=== PATIENT | female | born 1995 | race American Indian/Alaskan Native ===

== ENCOUNTER 2021-03-10 14:39 | Outpatient (CLI) | payer MEDICAID ==
[2021-03-10 15:38] VITALS: BP 126/72
[2021-03-10] MEDS ORDERED: LACTATED RINGERS 1,000 ML IV ONE (15:48)
[2021-03-10] MEDS ORDERED: ACETAMINOPHEN 500 MG TAB PO ONE (16:02)
[2021-03-10 16:17] LABS: Amphetamine Screen,Urine Negative; Benzodiazepines Screen,Urine Negative; Cannabinoid Screen,Urine Negative; Cocaine Screen,Urine Negative; Methadone Screen,Urine Negative; Opiate Screen,Urine Negative
[2021-03-10 16:53] LABS: Bacteria,Urine 1+ /HPF (Negative); Bilirubin,Urine NEG (Negative); Blood,Urine NEG (Negative); Color,Urine Yellow (Yellow); Hyaline Casts,Urine 1 /LPF; Mucus,Urine 1+ /HPF; Protein,Urine <15 mg/dL mg/dL (Negative); Urobilinogen,Urine < 2.0 mg/dL (<2.0)
== END 2021-03-10 17:35 | disposition home or self-care (01) ==
LOC: APU 14:39 → TRG 14:39
PROVIDERS: ATTEND Obstetrics & Gynecology
DX: O26.892 Other specified pregnancy related conditions, second trimester (principal); R51.9 Headache, unspecified; R25.2 Cramp and spasm; R42 Dizziness and giddiness; O47.02 False labor before 37 completed weeks of gestation, second trimester; O13.2 Gestational [pregnancy-induced] hypertension without significant proteinuria, second trimester; Z3A.26 26 weeks gestation of pregnancy
CPT/HCPCS: 59025; 80307; 81001; 96360; J7120

== ENCOUNTER 2021-03-21 17:30 | Outpatient (CLI) | payer MEDICAID ==
[2021-03-21] MEDS ORDERED: LACTATED RINGERS 500 ML IV ONE (18:54)
[2021-03-21 19:40] VITALS: BP 122/72
[2021-03-21 20:25] LABS: Amorphous Crystals,Urine Few; Bacteria,Urine 1+ /HPF (Negative); Bilirubin,Urine NEG (Negative); Blood,Urine NEG (Negative); Color,Urine Yellow (Yellow); Mucus,Urine 1+ /HPF
--- NOTE | 2021-03-21 21:06 | Ultrasound Report ---
LIMITED OBSTETRICAL ULTRASOUND. HISTORY: labor. FINDINGS: A single viable intrauterine in the breech presentation is dated 28 weeks 2 days by ultrasound. Estimated weight is 1204 g. Amniotic fluid index is at the lower range of normal measuring 8.8 cm. heart tones are 161 bpm. The cervix is closed measuring 3.5 cm. No placental separation is identified. IMPRESSION: Single viable intrauterine dated 28 weeks 2 days. Signer Name: Alfred Gaming MD Signed: 03/21/2021 9:02 PM Workstation Name: [id number]
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
[2021-03-21] MEDS ORDERED: LACTATED RINGERS 1,000 ML ONE (21:29)
[2021-03-21] MEDS ORDERED: LACTATED RINGERS 1000 ML IV SOLN IV SCH (21:45)
[2021-03-21] MEDS ORDERED: ACETAMINOPHEN 500 MG TAB PO ONE (22:13)
[2021-03-21] MEDS ORDERED: ACETAMINOPHEN 500 MG TAB ONE (22:14)
--- NOTE | 2021-03-22 08:53 | Ultrasound Report ---
ULTRASOUND PELVIS LIMITED INDICATION / CLINICAL INFORMATION: pain on left side mid to lower abdomen. Patient is 28 weeks pregna nt. COMPARISON: Ultrasound obstetric performed earlier on the same date. TECHNIQUE: Transabdominal. FINDINGS: Neither ovary can be identified due to excessive bowel gas. No adnexal mass or cyst. No free fluid in the pelvis. Signer Name: Dilcia Galaviz MD Signed: 03/22/2021 8:48 AM Workstation Name: [id number]
--- NOTE | 2021-03-23 10:08 | Ultrasound Report ---
US renal BILAT INDICATION / CLINICAL INFORMATION: pain on left side mid to lower abdomen. COMPARISON: None available. FINDINGS: RIGHT KIDNEY: Size = 13.2 cm. - Echogenicity: Normal. - Cortical thickness: Normal. - Hydronephrosis: None. - Cyst or mass: None. - Stones: None seen.. LEFT KIDNEY: Size = 13.6 cm. - Echogenicity: Normal. - Cortical thickness: Normal. - Hydronephrosis: None. - Cyst or mass: None. - Stones: None seen.. URINARY BLADDER: No significant abnormality. FREE FLUID: None. ADDITIONAL FINDINGS: None. IMPRESSION 1. No significant sonographic abnormality of the kidneys. Signer Name: Adam Reagan MD Signed: 03/21/2021 11:05 PM Workstation Name: [id number]
== END 2021-03-21 23:25 | disposition home or self-care (01) ==
LOC: TRG 17:30 → APU 17:31 → TRG 23:25
PROVIDERS: ATTEND Obstetrics & Gynecology
DX: O26.893 Other specified pregnancy related conditions, third trimester (principal); R10.32 Left lower quadrant pain; O13.3 Gestational [pregnancy-induced] hypertension without significant proteinuria, third trimester; O24.410 Gestational diabetes mellitus in pregnancy, diet controlled; O60.03 Preterm labor without delivery, third trimester; Z3A.28 28 weeks gestation of pregnancy
CPT/HCPCS: 59025; 76770; 76816; 81001; 96360; 96361; J7120; 76857